=== PATIENT | male | born 1965 | race Caucasian/White ===

== ENCOUNTER 2022-02-04 12:26 | Outpatient (REF) | payer OTHER, SELFPAY ==
--- NOTE | ~2022-02-04 | XR_ITS ---
EXAMINATION: XR HAND, RIGHT CLINICAL INFORMATION: Pain in right hand. COMPARISON: None TECHNIQUE: PA, lateral, and oblique views of the right hand. FINDINGS: Small subchondral cyst at the DIP joint of the index finger. Joint space normal. Bones and joints are otherwise unremarkable. Soft tissues are unremarkable. 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
== END 2022-02-04 12:27 | disposition home or self-care (01) ==
LOC: HO.HOSX 12:26
PROVIDERS: Visit Provider Physician Assistant
DX: M79.641 Pain in right hand (principal)
CPT/HCPCS: 73130

== ENCOUNTER 2022-02-19 06:33 | Day surgery (SDC) | payer OTHER, SELFPAY ==
[2022-02-12 13:15] VITALS: BMI 32.3
--- NOTE | 2022-02-19 08:37 | MHC.SHP ---
Pre-Procedural Eval Section A Date of Service: 02/19/22 Section B Chief Complaint: Ganglion, right hand Allergies: Allergies Allergy/AdvReac Type Severity Reaction Status Date / Time Sulfa (Sulfonamide Allergy hives, Verified 02/04/22 14:13 Antibiotics) fever Plan I have reviewed the history and physical and performed a pertinent physical examination on my patient. No changes have occurred unless specified.
--- NOTE | 2022-02-19 08:38 | W.PM.OPN ---
Operative Note Operative Note Date of Service: 02/19/22 Narrative: Operative Note Preop diagnosis: 1. Right index finger DIP joint osteoarthritis and mucous cyst Postop diagnosis: 1. right index finger soft tissue mass Procedure: 1. right index finger soft tissue mass excisional biopsy Surgeon: Doris Ferguson MD Anesthesia: Digital block using 1% lidocaine with epinephrine Findings: solid soft tissue mass measuring approximately 7 mm in diameter found lying dorsal to the extensor tendon just distal to the D IP joint. No fluid within the mass. EBL: Less than 5 mL Tourniquet time: None Specimens: None Complications: None Disposition: Brought to recovery room in stable condition Plan: Follow-up for 7-10 days for wound check and suture removal Check pathology Indications: The patient is 56 years old, with a right index finger soft tissue mass that appeared consistent with a mucous cyst over the dorsal aspect of the D IP joint. The risks and benefits of operative treatment including but not limited to risk of damage to blood vessels, nerves, tendons, infection, persistent pain, persistent symptoms, recurrence or possible need for additional surgery were discussed with the patient and the patient wishes to proceed with surgery. Procedure: Once consent was obtained a digital block was performed in the preop area using a combination of 1% lidocaine with epinephrine. The patient was then brought back to the operating suite and placed on the operative table in supine position. A tourniquet was applied to the proximal aspect of the Right upper extremity and the limb was prepped and draped in a standard surgical fashion. Once assured that we had a good block, an L-shaped incision was made over the dorsal aspect of the right distal phalanx. The incision was made through the skin to the subcutaneous tissues using a #15 blade. Careful dissection was made down to the level of the mass and extensor mechanism using iris scissors. rather than finding a cystic mass this mass was a solid soft tissue mass measuring about 7 mm in diameter. It was sitting atop the extensor mechanism just distal to the D IP joint. There was no fluid found within the mass. It was dissected free from the surrounding tissues and removed from the finger. Once satisfied, the wound was copiously irrigated with normal saline and hemostasis was obtained with a brief period of local pressure. The skin edges were reapproximated with some 5.0 Prolene suture material and a sterile dressing was applied. The patient appears to have tolerated the procedure well and with no complications. All digits were well vascularized at the conclusion of the case.
[2022-02-19 09:06] VITALS: BP 135/73; PULSE 66; RESP 18; TEMP 36.4
== END 2022-02-19 09:07 | disposition home or self-care (01) ==
PROVIDERS: PCP Internal Medicine; Visit Provider Orthopaedic Surgery
PROC: (CPT 26160; principal; 2022-02-19 07:30)
DX: M67.441 Ganglion, right hand (principal); Z88.2 Allergy status to sulfonamides
CPT/HCPCS: 26160; 88304; 88305; J0171

== ENCOUNTER 2023-06-08 09:04 | Outpatient (REF) | payer OTHER, SELFPAY ==
[2023-06-08 12:57] LABS: MANUAL DIFF FLAG NO
[2023-06-08 13:11] LABS: Basophils Percent Auto 0.7 % (0-2); Eosinophils Absolute Auto 0.2 X10*3/uL (0.0-0.4); Eosinophils Percent Auto 3.9 % (0-4); Hematocrit 44.6 % (42.0-52.0); Hemoglobin 15.2 g/dl (14.0-18.0); Imm Gran Abs Auto 0.02 X10*3/uL (0.00-0.03); Imm Gran Pct Auto 0.5 % (0.0-0.4); Lymphocytes Absolute Auto 0.8 X10*3/uL (1.2-4.9); Lymphocytes Percent Auto 19.1 % (20-40); Mean Corpuscular HGB Conc 34.1 g/dl (31.0-36.0); Mean Corpuscular Hemoglobin 31.8 pg (27.0-33.0); Mean Corpuscular Volume 93.3 fL (80.0-98.0); Mean Platelet Volume 10.6 fL (9.4-12.4); Monocytes Absolute Auto 0.4 X10*3/uL (0.1-1.2); Monocytes Percent Auto 10.3 % (2-11); Neutrophils Absolute Auto 2.7 x10*3/uL (2.0-8.3); Neutrophils Percent Auto 65.5 % (45-73); Platelet Count 241 X10*3/uL (160-400); Red Blood Count 4.78 X10*6/uL (4.60-5.80); Red Cell Distribution Width 11.9 % (11.0-16.0); White Blood Count 4.1 X10*3/uL (4.8-10.8)
[2023-06-08 13:45] LABS: Alanine Aminotransferase 102 U/L (0-40); Albumin Level 4.6 g/dL (3.5-5.0); Alkaline Phosphatase 47 U/L (39-117); Anion Gap 14 (12-20); Aspartate Amino Transferase 144 U/L (5-37); Bilirubin Total 0.7 mg/dL (0.0-1.0); Blood Urea Nitrogen 13 mg/dL (9-16); Calcium 9.6 mg/dL (8.4-10.2); Carbon Dioxide 25 mmol/L (22-29); Chloride 105 mmol/L (96-108); Cholesterol 203 mg/dL (<200); Estimated Glomerular Filt Rate > 60; Glucose Random 82 mg/dL (60-115); HDL Cholesterol 44 mg/dL (>40); LDL Cholesterol Calculated 143 mg/dL (<100); Potassium 4.3 mmol/L (3.3-5.1); Sodium 140 mmol/L (135-145); Total Protein 7.2 g/dL (6.5-8.0); Triglycerides 84 mg/dL (<150)
[2023-06-08 13:51] LABS: Estimated Average Glucose 105 mg/dL; Hemoglobin A1C 150.1531 umol/L; Hemoglobin A1c % 5.3 % (<6.0)
== END 2023-06-08 09:05 | disposition home or self-care (01) ==
LOC: HO.MANLDS 09:04
PROVIDERS: Visit Provider Physician Assistant
DX: Z00.00 Encounter for general adult medical examination without abnormal findings (principal)
CPT/HCPCS: 36415; 80053; 80061; 83036; 85025

== ENCOUNTER 2023-12-06 08:37 | Outpatient (REF) | payer OTHER, SELFPAY ==
[2023-12-06 13:52] LABS: MANUAL DIFF FLAG NO
[2023-12-06 14:08] LABS: Basophils Percent Auto 0.8 % (0-2); Eosinophils Absolute Auto 0.2 X10*3/uL (0.0-0.4); Eosinophils Percent Auto 3.8 % (0-4); Hematocrit 42.4 % (42.0-52.0); Hemoglobin 14.7 g/dl (14.0-18.0); Imm Gran Abs Auto 0.01 X10*3/uL (0.00-0.03); Imm Gran Pct Auto 0.3 % (0.0-0.4); Lymphocytes Absolute Auto 0.9 X10*3/uL (1.2-4.9); Lymphocytes Percent Auto 21.9 % (20-40); Mean Corpuscular HGB Conc 34.7 g/dl (31.0-36.0); Mean Corpuscular Hemoglobin 32.1 pg (27.0-33.0); Mean Corpuscular Volume 92.6 fL (80.0-98.0); Mean Platelet Volume 10.4 fL (9.4-12.4); Monocytes Absolute Auto 0.3 X10*3/uL (0.1-1.2); Monocytes Percent Auto 8.4 % (2-11); Neutrophils Absolute Auto 2.5 x10*3/uL (2.0-8.3); Neutrophils Percent Auto 64.8 % (45-73); Platelet Count 254 X10*3/uL (160-400); Red Blood Count 4.58 X10*6/uL (4.60-5.80); White Blood Count 3.9 X10*3/uL (4.8-10.8)
[2023-12-06 14:20] LABS: Estimated Average Glucose 103 mg/dL; Hemoglobin A1c % 5.2 % (<6.0)
[2023-12-06 14:52] LABS: Alanine Aminotransferase 25 U/L (0-40); Albumin Level 4.6 g/dL (3.5-5.0); Alkaline Phosphatase 42 U/L (39-117); Anion Gap 13 (12-20); Aspartate Amino Transferase 25 U/L (5-37); Bilirubin Total 0.8 mg/dL (0.0-1.0); Blood Urea Nitrogen 20 mg/dL (9-16); Calcium 9.7 mg/dL (8.4-10.2); Carbon Dioxide 26 mmol/L (22-29); Chloride 104 mmol/L (96-108); Cholesterol 202 mg/dL (<200); Estimated Glomerular Filt Rate > 60; Glucose Random 92 mg/dL (60-115); HDL Cholesterol 58 mg/dL (>40); LDL Cholesterol Calculated 133 mg/dL (<100); Potassium 4.1 mmol/L (3.3-5.1); Sodium 139 mmol/L (135-145); Total Protein 6.7 g/dL (6.5-8.0); Triglycerides 58 mg/dL (<150)
[2023-12-08 13:28] LABS: Free Prostate Spec Ag 1.6 ng/mL; Percent Free Prostate Spec Ag 18 % (calc) (>25)
== END 2023-12-06 08:38 | disposition home or self-care (01) ==
LOC: HO.MANLDS 08:37
PROVIDERS: PCP Physician Assistant; Visit Provider Urology
DX: R97.20 Elevated prostate specific antigen [PSA] (principal); N40.0 Benign prostatic hyperplasia without lower urinary tract symptoms; Z13.1 Encounter for screening for diabetes mellitus
CPT/HCPCS: 36415; 80053; 80061; 83036; 84154; 85025

== ENCOUNTER 2025-04-13 13:58 | Outpatient (REF) | payer OTHER, SELFPAY ==
[2025-04-13 18:20] LABS: MANUAL DIFF FLAG NO
[2025-04-13 18:36] LABS: Hematocrit 42.1 % (42.0-52.0); Hemoglobin 14.5 g/dl (14.0-18.0); Imm Gran Abs Auto 0.01 X10*3/uL (0.00-0.03); Imm Gran Pct Auto 0.2 % (0.0-0.4); Lymphocytes Absolute Auto 1.1 X10*3/uL (1.2-4.9); Mean Corpuscular HGB Conc 34.4 g/dl (31.0-36.0); Mean Corpuscular Hemoglobin 30.5 pg (27.0-33.0); Mean Corpuscular Volume 88.6 fL (80.0-98.0); NRBC Abs Auto 0.000 X10*3/uL (0.0-0.012); NRBC Pct Auto 0.0 /100WBC (0.0-0.2); Platelet Count 277 X10*3/uL (160-400); Red Blood Count 4.75 X10*6/uL (4.60-5.80); White Blood Count 5.0 X10*3/uL (4.8-10.8)
[2025-04-13 18:50] LABS: Alanine Aminotransferase 21 U/L (0-40); Albumin Level 4.7 g/dL (3.5-5.0); Alkaline Phosphatase 46 U/L (39-117); Anion Gap 12 (12-20); Aspartate Amino Transferase 24 U/L (5-37); Blood Urea Nitrogen 13 mg/dL (9-16); Calcium 9.1 mg/dL (8.4-10.2); Carbon Dioxide 26 mmol/L (22-29); Chloride 106 mmol/L (96-108); Cholesterol 198 mg/dL (<200); Estimated Glomerular Filt Rate > 60; HDL Cholesterol 49 mg/dL (>40); Potassium 3.9 mmol/L (3.3-5.1); Sodium 140 mmol/L (135-145); Total Protein 6.7 g/dL (6.5-8.0); Triglycerides 62 mg/dL (<150)
--- OUTSIDE RECORDS SUMMARY | 2025-04-13 20:43 | XMS_ITS | Continuity of Care Document ---
Author Organization [facility] Address [address] [place] [address] Assessment No assessment recorded. Plan of Treatment Reminders Order Date Submit Date Provider Last Modified By Organization Details Last Modified Time Details Appointments ANNUAL EXAM 2024 01:30P CHANDLER RODRIGUEZ Not available Not available Not available ANNUAL EXAM 2025 09:00A CHANDLER RODRIGUEZ Not available Not available Not available Lab CMP, serum or plasma 2024 [facility], [address] [place] [address], [id number], 04/13/2025 13:36:27 CBC w/ auto diff 2024 [facility], [address] [place] [address], [id number], 04/13/2025 13:36:27 lipid panel, blood 2024 [facility], [address] [place] [address], [id number], 04/13/2025 13:36:27 hemoglobi n A1c, QN, blood 2024 [facility], [address] [place] [address], [id number], 04/13/2025 13:36:27 Referral None recorded. Procedures None recorded. Surgeries None recorded. Imaging None recorded. Medication Orders None recorded. Patient TargetsNo targets recorded. Patient InstructionsNo instructions recorded. Reason for Referral None Reported. Problems Name Problem SNOMED Code Status Onset Date Resolution Date Notes Provider Name and Address Organization Details Recorded Time Anxiety 80067600 Active 2022 CHANDLER PAYNE [address] [place] [address], [id number], [facility] 3 10:40:53 Benign prostatic hyperplas ia 386471617 Active 2022 CHANDLER PAYNE [address] [place] [address], [phone], [facility] 3 10:41:57 History of Malignant melanoma 544906314 Active 2022 CHANDLER PAYNE [address] [place] [address], [id number], [facility] 3 10:48:53 Depressiv e disorder 43612217 Active 2022 CHANDLER PAYNE [address] [place] [address], [id number], [facility] 3 08:26:54 Injury of left knee 085314705010 106 Active 2024 CHANDLER PAYNE [address] [place] [address], [id number], [facility] 5 14:50:37 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 Procedures Surgical History Date Name Laterality Status Provider Name and Address Organization Details Recorded Time excision of melanoma completed CHANDLER PAYNE [address] [place] [address], [id number], [facility] 08/07/2022 10:48:25 extraction of wisdom tooth completed CHANDLER PAYNE [address] [place] [address], [id number], [place] [facility]/07/[facility] 10:48:37 Imaging Results None recorded. Procedure Notes None recorded. Medical Equipment None Reported. Allergies Allergen ID Allergen Name Allergen Category Reaction Reaction Severity Criticality Documentation Date Start Date Code Code System Note Provider Name and Address Organization Details Recorded Time 6488 Substance with sulfonami de structure and antibacte rial mechanism of action (substanc e) medicatio n hives Not available Not available 08/07/2022 15320 8003 SNOMED Karma Ermelinda tripp [facility] 3 10:27:28 6489 benzene Not available fever hives Not available Not available Not available 08/07/2022 88174 95 RxNorm Karma tripp [facility] 3 10:28:05 9503 benzoin resin medicatio n Not available Not available Not available 04/13/2025 1406 RxNorm Not Available 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 08/07 completed Not Available Not Available Not Available prednisone 20 mg tablet TAKE 3 TABLETS BY MOUTH ONCE DAILY X3 DAYS, THEN 2 TABS ONCE DAILY X3 DAYS, THEN 1 TAB ONCE DAILY 08/07 completed Not Available Not Available Not Available ciprofloxac in 500 mg tablet TAKE 1 TABLET BY MOUTH 1 HOUR BEFORE PROCEDURE AND 1 TABLET 10 HOURS AFTER 10/02 completed Not Available Not Available Not Available sertraline 50 mg tablet Take 1 tablet every day by oral route. 03/28 completed Not Available Not Available Not Available Zyrtec 03/28 completed Not Available Not Available Not Available Vitals Date Recorded Body height Body mass index (BMI) Body weight Oxygen saturation Oxygen saturation in Arterial blood by Pulse oximetry Heart rate Systolic And Diastolic Provider Name and Address Organization Details Last Updated DateTime 5 175.26 cm 31.2 kg/m2 23897.9 9 g 97 % 97 % 64 /min 116/72 mm[Hg] Lita Salazar [facility] 13:30:02 Social History Question Answer Notes LastModified by Organizat ion Details LastModified Time Tobacco Smoking Status Never Smoker Karma tripp [facility] 08/07/2022 10:21:36 Do You Have An Advance Directive? No Information not available 08/07/2022 Are You Blind Or Do You Have Difficulty Seeing? No Information not available 08/07/2022 What Is Your Level Of Caffeine Consumption? Heavy Information not available 08/07/2022 In The 14 Days Before Symptom Onset, Have You Had Close Contact With A Laboratory-confir med COVID-19 While That Case Was Ill? No Information not available 08/07/2022 In The 14 Days Before Symptom Onset, Have You Had Close Contact With A Person Who Is Under Investigation For COVID-19 While That Person Was Ill? No Information not available 08/07/2022 Have You Been To An Area Known To Be High Risk For COVID-19? No Information not available 08/07/2022 Are You Deaf Or Do You Have Serious Difficulty Hearing? No Information not available 08/07/2022 What Type Of Diet Are You Following? REGULAR No Processed Foods Information not available 08/07/2022 What Is The Highest Grade Or Level Of School You Have Completed Or The Highest Degree You Have Received? [id number] Information not available 08/07/2022 How Many Days Of Moderate To Strenuous Exercise, Like A Brisk Walk, Did You Do In The Last 7 Days? 4 Information not available 08/07/2022 On Those Days That You Engage In Moderate To Strenuous Exercise, How Many Minutes, On Average, Do You Exercise? 5 Information not available 08/07/2022 Are There Any Guns Present In Your Home? No Information not available 08/07/2022 What Was The Date Of Your Most Recent Tobacco Screening? 04/13/2025 [email or web address] Information not available 04/13/2025 How Many Children Do You Have? 3 2 Boys Information not available 08/07/2022 Are You Sexually Active? Yes Information not available 08/07/2022 Do You Have Smoke And Carbon Monoxide Detectors In Your Home? Yes Information not available 08/07/2022 Are You Passively Exposed To Smoke? No Information no t available 08/07/2022 Do You Use Sunscreen Routinely? Yes Information not available 08/07/2022 Do You Have Difficulty Walking Or Climbing Stairs? No Information not available 08/07/2022 Sex: Unknown Functional Status Question Answer Note LastModified by Organizat ion Details LastModified Time Do you use any illicit or recreational drugs? No Information not available 08/07/2022 Do you or have you ever used any other forms of tobacco or nicotine? No Information not available 08/07/2022 What is your level of alcohol consumption? Moderate Information not available 08/07/2022 Are you currently employed? Yes Information not available 08/07/2022 Are you able to walk independently without assistance or assistive devices? YESWOREST Information not available 08/07/2022 Do you have difficulty doing errands alone? No Information not available 08/07/2022 Are you able to care for yourself independently? 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 No Information not available 08/07/2022 What is your exercise level? Occasional usually goes to the gym 5 times per week Information not available 08/07/2022 Mental Status Question Answer Note LastModified by Organization D etails LastModified Time Do you have difficulty concentrating, remembering or making decisions? No Information no t available 08/07/2022 Family History Relationship Description Onset Age of this Age Resolved Age Notes LastModified by Organization Details LastModified Time Mother Amyotrophic lateral sclerosis [email or web address] Not available 2022 10:44:42 Father Malignant neoplasm of esophagus [email or web address] Not available 2022 10:45:00 Notes:ALS with mother Medical History No medical history recorded. Immunizations Vaccine Type Date Status Note Provider Nam e and Address Organization Details Recorded Time COVID-19, mRNA, LNP-S, PF, 50 mcg/0.5 mL dose 1 completed Karma tripp, [facility] 08/05/2022 13:38:28 COVID-19, mRNA, LNP-S, PF, 50 mcg/0.5 mL dose 1 completed Karmamat Wadsworth null, [facility] 08/05/2022 13:38:37 COVID-19, mRNA, LNP-S, PF, 50 mcg/0.5 mL dose 1 completed Karma Afton null, [facility] 08/05/2022 13:38:43 influenza, unspecified formulation 7 completed Karma Wadsworth null, [facility] 08/05/2022 13:39:01 influenza, unspecified formulation 8 completed Karma tripp, [facility] 08/05/2022 13:39:08 influenza, unspecified formulation 9 completed Karma tripp, [facility] 08/05/2022 13:39:14 zoster recombinant 3 completed CHANDLER PAYNE [address] [place] [address], [id number], [facility] 03/28/2024 12:14:12 zoster recombinant 3 completed CHANDLER PAYNE [address] [place] [address], [id number], [facility] 03/28/2024 12:14:25 Past Encounters Encounter ID Performer Location Encounter Start Date Encounter Closed Date Diagnosis/Indication Diagnosis SNOMED-CT Code Diagnosis ICD10 Code Diagnosis IMO Codes Diagnosis Note [id number] [facility] [address],[place] [address] 04/13/2025 13:21:00 04/13/2025 15:40:30 Depression screening 714309792 Z13.31 SCREENING NEGATIVE Physical examination 588 0005 Z00.00 [id number] will set up with lab work for the year > his PSA is with his urologist, goes every year Health Concerns Section Related Observation LastModified by Organization Detai ls LastModified Time None Recorded Concern Status LastModified by Organization Details LastModified Time None Recorded Payers Encounter Date Sequence Insurance Name Policy Number Policy Carroll Covered Member ID Carroll Member ID Guarantor Name 04/13/2025 1 [facility] [id number] Tima Lugo [id number] Tima Lugo Notes Date Note Type Note Provider Name a nd Address Organization Details Recorded Time 5 text/html Annual WellnessReported by PatientSocial/Behavio ral HistoryFor diet and nutrition, patient reportshealthy diet,discussed vitamin and supplement use,discussed portion control,discussed maintaining calcium balance, anddiscussed diet improvement. For fracture risk, patient reportsno history of fractures,no recent explained fracture,no sudden unexplained fractures, andno previous musculoskeletal injuries. For physical activity, patient reportsexercises on a regular basis,recent increase in physical activity,good physical condition,discussed weightbearing activities, anddiscussed exercise habits. For additional lifestyle factors, patient reportsno tobacco useanddrinks alcohol (mild-moderate).Menta l Status:For depression risk, patient reportsnever feels sad, empty, or tearful,no loss of interest in activities,no significant changes in weight,no sleep disturbances or insomnia,no agitation,no loss of energy,no feelings of worthlessness or guilt,no thoughts of suicide,no history of depression, andno history of mood disorders.Functional AbilityFor hearing, patient reportsno loss of hearing. For vision, patient reportsno vision problems.ROS as noted in the HPI the patient is 208 lbs > 211 lbs in the office with clothes onotherwise doing well no meds, is staying off the meds, doesn't need it given lifestyle changes CHANDLER PAYNE [address] [place] [address], [place], [phone], [facility] 04/13/2025 13:54:40
--- OUTSIDE RECORDS SUMMARY | 2025-04-13 20:43 | XMS_ITS | Data Portability ---
Author Organization [facility] Telehealth Patient Home Address [address] [facility] [place] [address] Assessment Encounter Date Assessment Date Assessment LastModified by Organization Details LastModified Time 02/17/2023 02/17/2023 The patient denies little pleasure in activities they find enjoyable, feeling depressed, difficulties sleeping, feeling tired or having little energy, change in appetite, feeling guilty, overwhelmed or unmotivated. The patient denies suicidal ideation, thoughts of hurting themselves or others. Their mood is appropriate, they show good judgement and clear understanding of the conversation. They are orientated to time, place and person. They are not expressing any concerning thoughts or actions that would need further investigation and treatment for mental health. [email or web address] Not available 02/17/2023 09:00:44 Plan of Treatment Reminders Order Date Submit Date Provider Last Modified By Organization Details Last Modified Time Details Appointments ANNUAL EXAM 2024 01:30P CHANDLER RODRIGUEZ Not available Not available Not available ANNUAL EXAM 2025 09:00A CHANDLER RODRIGUEZ Not available Not available Not available Lab CMP, serum or plasma 2024 025 [facility], [address] [place] [address], [place], [address], 04/13/2025 13:36:27 CBC w/ auto diff 2024 025 [facility], [address] [place] [address], [id number], 04/13/2025 13:36:27 lipid panel, blood 2024 025 [facility], [address] [place] [address], [place], [address], 04/13/2025 13:36:27 hemoglobi n A1c, QN, blood 2024 025 [facility], [address] [place] [address], [place], [address], 04/13/2025 13:36:27 CMP, serum or plasma 2022 023 [facility], [address] [place] [address], [place], [address], 06/09/2023 11:22:50 CBC w/ auto diff 2022 023 [facility], [address] [place] [address], [place], [address], 06/09/2023 11:22:51 lipid panel, blood 2022 023 [facility], [address] [place] [address], [place], [address], 06/09/2023 11:22:50 hemoglobi n A1c, QN, blood 2022 023 [facility], [address] [place] [address], [address], 06/09/2023 11:22:51 Referral None recorded. Procedures None recorded. Surgeries None recorded. Imaging XR, knee, 3 view 2024 025 [facility], [address] [place], [address], 10/02/2024 16:11:36 Medication Orders None recorded. Patient TargetsNo targets recorded. Patient InstructionsNo instructions recorded. Reason for Referral None Reported. Results Created Date Observation Date Name Description Value Unit Range Abnormal Flag Note LastModifiedBy Organization Detail LastModifiedTime 10/03/19 25 10/02/2024 XR, knee, 3 view No observ ation record ed. [email or web address] [facility] [address] [facility] [address], [place], [address], 10/03/2024 09:52:17 10/11/19 25 10/09/2024 MRI, knee, w/o contr ast No observ ation record ed. [email or web address] [facility] [address] [facility] [address], [place], [address], 10/11/2024 13:05:15 Result Notes None recorded. Problems Name Problem SNOMED Code Status Onset Date Resolution Date Notes Provider Name and Address Organization Details Recorded Time Anxiety 49984840 Active 2022 CHANDLER PAYNE [address] [place], [address], [facility] 3 10:40:53 Benign prostatic hyperplas ia 997306490 Active 2022 CHANDLER PAYNE [address] [place] [address], [address], [facility] 3 10:41:57 History of Malignant melanoma 728956447 Active 2022 CHANDLER PAYNE [address] [place] [address], [address], [facility] 3 10:48:53 Depressiv e disorder 12308449 Active 2022 CHANDLER PAYNE [address] [place] [address], [address], [facility] 3 08:26:54 Injury of left knee 153225414232 106 Active 2024 CHANDLER PAYNE [address] [place] [address], [address], [facility] 5 14:50:37 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 Procedures Surgical History Date Name Laterality Status Provider Name and Address Organization Details Recorded Time excision of melanoma completed CHANDLER PAYNE [address] [place], [address], [facility] 08/07/2022 10:48:25 extraction of wisdom tooth completed CHANDLER PAYNE [address] [place], [address], [facility] 08/07/2022 10:48:37 Imaging Results None recorded. Procedure Notes None recorded. Medical Equipment None Reported. Allergies Allergen ID Allergen Name Allergen Category Reaction Reaction Severity Criticality Documentation Date Start Date Code Code System Note Provider Name and Address Organization Details Recorded Time 6488 Substance with sulfonami de structure and antibacte rial mechanism of action (substanc e) medicatio n hives Not available Not available 08/07/2022 88054 8003 [facility] 10:27[facility]28 6489 benzene Not available fever hives Not available Not available Not available 08/07/2022 57039 95 RxNorm Karma Wadsworth [facility] 3 10:28:05 9503 benzoin resin medicatio n Not available Not available Not available 04/13/2025 1406 RxNorm Not Available [facility] - External Data Service - prod 5 [...] completed Not Available Not Available Not Available Zyrte 03/28 completed Not Available Not Available Not Available Vitals Date Recorded Body weight Body mass index (BMI) Body height Oxygen saturation Oxygen saturation in Arterial blood by Pulse oximetry Heart rate Systolic And Diastolic Provider Name and Address Organization Details Last Updated DateTime 3 857882. 8 g 34.9 kg/m2 175.26 cm 99 % 99 % 82 /min 140/82 mm[Hg] Karma Wadsworth [facility] 3 10:26:34 Date Recorded Body height Body mass index (BMI) Body weight Heart rate Oxygen saturation Oxygen saturation in Arterial blood by Pulse oximetry Systolic And Diastolic Provider Name and Address Organization Details Last Updated DateTime 5 175.26 cm 32.2 kg/m2 54914.4 2 g 95 /min 96 % 96 % 146/82 mm[Hg] Tasha Saavedra [facility] 5 14:40:29 Date Recorded Body height Body mass index (BMI) Body weight Heart rate Oxygen saturation Oxygen saturation in Arterial blood by Pulse oximetry Systolic And Diastolic Provider Name and Address Organization Details Last Updated DateTime 3 175.26 cm 35.9 kg/m2 976170. 95 g 73 /min 95 % 95 % 146/82 mm[Hg] Sowmya Stark [facility] 3 08:55:54 Date Recorded Body height Body mass index (BMI) Body weight Heart rate Oxygen saturation Oxygen saturation in Arterial blood by Pulse oximetry Systolic And Diastolic Provider Name and Address Organization Details Last Updated DateTime 4 175.26 cm 31.4 kg/m2 38169.8 2 g 79 /min 98 % 98 % 118/74 mm[Hg] Tasha Saavedra [facility] 4 11:58:32 Date Recorded Body height Body mass index (BMI) Body weight Oxygen saturation Oxygen saturation in Arterial blood by Pulse oximetry Heart rate Systolic And Diastolic Provider Name and Address Organization Details Last Updated DateTime 5 175.26 cm 31.2 kg/m2 37348.9 9 g 97 % 97 % 64 /min 116/72 mm[Hg] Lita Salazar [facility] 13:30:02 Social History Question Answer Notes LastModified by Organizat ion Details LastModified Time Tobacco Smoking Status Never Smoker Karma tripp [facility] 08/07/2022 10:21:36 Do You Have [...] Or The Highest Degree You Have Received? [id number] Information not available 08/07/2022 How Many Days [...] 50 mcg/0.5 mL dose 1 completed Karma Wadsworth null, [facility] 08/05/2022 13:38:28 COVID-19, mRNA, LNP-S, PF, 50 mcg/0.5 mL dose 1 completed Karma [place] null, [facility] 08/05/2022 13:38:37 COVID-19, mRNA, LNP-S, PF, 50 mcg/0.5 mL dose 1 completed Karma [place] null, [facility] 08/05/2022 13:38:43 influenza, unspecified formulation 7 completed Karmamat Mikener null, [facility] 08/05/2022 13:39:01 influenza, unspecified formulation 8 completed Karma [place] null, [facility] 08/05/2022 13:39:08 influenza, unspecified formulation 9 completed Karmamat tripp, [facility] 08/05/2022 13:39:14 zoster recombinant 3 completed CHANDLER PAYNE [address] [place] [address], [address], [facility] 03/28/2024 12:14:12 zoster recombinant 3 completed CHANDLER PAYNE [address] [place] [address], [address], [facility] 03/28/2024 12:14:25 Past Encounters Encounter ID Performer Location Encounter Start Date Encounter Closed Date Diagnosis/Indication Diagnosis SNOMED-CT Code Diagnosis ICD10 Code Diagnosis IMO Codes Diagnosis Note [id number] Ej Melendez DO [facility] [address] [facility],[place] [address] 08/07/2022 10:14:14 08/07/2022 16:25:45 Anxiety 24312680 F41.1 stable on current dose Benign pro static hyperplasia 987269773 N40.0 sees urology every 6 mos for monitoring purposes History of Malignant melanoma 694611871 Z85.89 when he was 33 y/maria fernanda new lesions [id number] Ej Gilbert Al [facility] [address] [facility], [place] [address] 02/17/2023 08:46:21 02/17/2023 09:28:21 History of Malignant melanoma 893794294 Z85.89 when he was 33 y/maria fernanda new lesions Adult heal th examination 824141070 Z00.00 will set up with lab work [id number] Ej Melendez [facility] [address] [facility], [place] [address] 03/28/2024 11:23:59 03/28/2024 16:23:07 Active or passive immunization 038429428 Z23 advised Adult heal th examination 272738087 Z00.00 will set up with lab work Depression screening 171 481364 Z13.31 SCREENING NEGATIVE Anxiety 52328361 F41.1 stable on current dose Depressive disorder 3548 9007 F32.1 stable [id number] Ej Melendez [facility] [address] [facility], [address] [facility] [place] [address] 10/02/2024 14:14:33 10/02/2024 14:59:51 Depression screening 769153649 Z13.31 SCREENING NEGATIVE Injury of left knee 4592 981792 95281 S89.92XA [id number] needs MRI, probably a lateral meniscus tear with possible collateral ligament tearing as well given symptoms [id number] Ej Melendez [facility] [address] [facility], [place] [address] 04/13/2025 13:21:00 04/13/2025 15:40:30 Depression screening 767889079 Z13.31 SCREENING NEGATIVE Physical examination 588 0005 Z00.00 [id number] will set up with lab work for the year > his PSA is with his urologist, goes every year Health Concerns Section Related Observation LastModified by Organization Detromina ls LastModified Time None Recorded Concern Status LastModified by Organization Details LastModified Time None Recorded Advance Directives Directive N: Payers Insurance Date Sequence Insurance Name Policy Number Policy Carroll Covered Member ID Carroll Member ID Guarantor Name 04/10/2025 1 [facility] [id number] Tima Lugo [id number] Tima Lugo Notes Date Note Type Note Provider Name and Address Organization Details Recorded Time 3 text/html ROS as noted in the HPI NPV Allergies: all in the chart PMH: anxiety: stable sertraline, stable at current doseBPH: stable, sees urology every 6 mos social hx:in the chart the patient is eating okay sleeping okaystable on his anxiety medication no other major concernsdiscussed the shingles vaccineup to date on everything CHANDLER PAYNE [address] [place], [address], [facility] 08/07/2022 10:55:08 3 text/html Annual WellnessReported by PatientSocial/Behaviora l HistoryFor diet and nutrition, patient reportshealthy diet,discussed vitamin and supplement use,discussed portion control,discussed maintaining calcium balance, anddiscussed diet improvement(working on dietcutting carbs out). For fracture risk, patient reportsno history of fractures,no recent explained fracture,no sudden unexplained fractures, andno previous musculoskeletal injuries. For physical activity, patient reportsexercises on a regular basis,recent increase in physical activity,good physical condition,discussed weightbearing activities, anddiscussed exercise habits(plays hockeytravel and stretching). For additional lifestyle factors, patient reportsno tobacco useanddrinks alcohol (mild-moderate).Mental Status:For depression risk, patient reportsnever feels sad, empty, or tearful,no loss of interest in activities,no significant changes in weight,no sleep disturbances or insomnia,no agitation,no loss of energy,no feelings of worthlessness or guilt,no thoughts of suicide,no history of depression, andno history of mood disorders.Functional AbilityFor hearing, patient reportsno loss of hearing. For vision, patient reportsno vision problems(last eye exam is recent). anxiety: stable CHANDLER PAYNE [address] [place], [address], [facility] 02/17/2023 09:10:08 4 text/html Annual WellnessReported by PatientSocial/Behaviora l HistoryFor diet and nutrition, patient reportshealthy diet,discussed vitamin and supplement use,discussed portion control,discussed maintaining calcium balance, anddiscussed diet improvement. For fracture risk, patient reportsno history of fractures,no recent explained fracture,no sudden unexplained fractures, andno previous musculoskeletal injuries. For physical activity, patient reportsexercises on a regular basis,recent increase in physical activity, andgood physical condition. For additional lifestyle factors, patient reportsno tobacco useanddrinks alcohol (mild-moderate).Mental Status:For depression risk, patient reportsnever feels sad, empty, or tearful,no loss of interest in activities,no significant changes in weight,no sleep disturbances or insomnia,no agitation,no loss of energy,no feelings of worthlessness or guilt,no thoughts of suicide,no history of depression, andno history of mood disorders.Functional AbilityFor hearing, patient reportsno loss of hearing. For vision, patient reportsno vision problems.ROS as noted in the HPI gym 6 days a week, weight liftingplays hockey, averages two days a week and averages 10 k steps per day the patient denies any new allergiesbreathing is goodno chest pain depression screening: The patient denies little pleasure in activities they find enjoyable, feeling depressed, difficulties sleeping, feeling tired or having little energy, change in appetite, feeling guilty, overwhelmed or unmotivated. The patient denies suicidal ideation, thoughts of hurting themselves or others. Their mood is appropriate, they show good judgement and clear understanding of the conversation. They are orientated to time, place and person. They are not expressing any concerning thoughts or actions that would need further investigation and treatment for mental health. CHANDLER PAYNE [address] [place] [address], [address], [facility] 03/28/2024 12:26:22 5 text/html ROS as noted in the HPI c/o L knee pain the patient reports that he noticed knee pain, Lthe patient notes that he got caught by his neighbors dog by its leash, and rotated his leg which was planted and rotated the patient reports that he then was ice skating, plays hockeythe patient was skating backwards and his knee gave out rotating the knee, kneeling on it, flexion of the knee bothers himthe patient agreed to XR needs MRI after, agreed to [facility] (does not need an open MRI) recommended ice, rest, elevation and brace in the meantime CHANDLER PAYNE [address] [place], [address], [facility] 10/02/2024 14:56:05 5 text/html Annual WellnessReported by PatientSocial/Behaviora l HistoryFor diet and nutrition, patient reportshealthy diet,discussed [...] lifestyle factors, patient reportsno tobacco useanddrinks alcohol (mild-moderate).Mental Status:For depression risk, patient reportsnever feels sad, [...] need it given lifestyle changes CHANDLER PAYNE [address] [place], [address], [facility] 04/13/2025 13:54:40
== END 2025-04-13 13:59 | disposition home or self-care (01) ==
LOC: HO.MANLDS 13:58
PROVIDERS: Visit Provider Physician Assistant
DX: Z00.00 Encounter for general adult medical examination without abnormal findings (principal); Z13.6 Encounter for screening for cardiovascular disorders; Z13.1 Encounter for screening for diabetes mellitus
CPT/HCPCS: 36415; 80053; 80061; 83036; 85025